=== PATIENT | male | born 1980 | race Caucasian/White ===

== ENCOUNTER 2024-12-27 16:33 | Emergency (ER) | payer BC, OTHER ==
[2024-12-27] MEDS ORDERED: Dexamethasone 4 MG/ML SDV IVPUSH ONE (16:45)
[2024-12-27 16:50] LABS: BASOPHILS ABSOLUTE AUTO 0.02 K/uL (0.00-0.20); BASOPHILS PERCENT AUTO 0.3 % (0.0-1.0); EOSINOPHILS ABSOLUTE AUTO 0.04 K/uL (0.00-0.45); EOSINOPHILS PERCENT AUTO 0.7 % (0.0-6.0); HEMATOCRIT 37.9 % (42.0-52.0); HEMOGLOBIN 13.4 g/dL (14.0-18.0); IMMATURE GRAN ABSOLUTE AUTO 0.01 K/uL (0.00-0.05); IMMATURE GRAN PERCENT AUTO 0.2 % (0.0-0.4); LYMPHOCYTES ABSOLUTE AUTO 0.49 K/uL (1.00-4.80); LYMPHOCYTES PERCENT AUTO 8.2 % (24.0-44.0); MEAN CORPUSCULAR HEMOGLOBIN 25.8 pg (28.0-32.0); MEAN CORPUSCULAR HGB CONC 35.4 g/dL (32.0-36.0); MEAN CORPUSCULAR VOLUME 72.9 fL (83.0-99.0); MONOCYTES PERCENT AUTO 15.1 % (0.0-8.0); NEUTROPHILS ABSOLUTE AUTO 4.51 K/uL (1.80-7.70); NEUTROPHILS PERCENT AUTO 75.5 % (41.0-71.0); PLATELET COUNT,PLT 126 K/uL (150-400); WHITE BLOOD CELL COUNT,WBC 5.97 K/uL (3.9-11.3)
[2024-12-27] MEDS ORDERED: Sodium Chloride 0.9% 2,000 ML IV ONE (16:50)
[2024-12-27] MEDS: Sodium Chloride 0.9% 1,000 ML IV ONE ×2 (16:57→16:58)
[2024-12-27] MEDS: Ondansetron 4 MG/2 ML SDV IVPUSH ONE (16:58)
[2024-12-27] MEDS: Ketorolac 30 MG/ML SDV IVPUSH ONE (16:58)
[2024-12-27] MEDS: Acetaminophen 500 MG Tab PO ONE (16:58)
[2024-12-27] MEDS: Sodium Chloride 0.9% 10 ML Syringe FLUSH PRN (16:59)
[2024-12-27 17:07] LABS: HEMOGLOBIN A1C 11.5 %
[2024-12-27 17:30] LABS: A/G RATIO 0.9 (0.9-1.6); BILIRUBIN TOTAL 0.5 mg/dL (0.2-1.0); CALCIUM 8.4 mg/dL (8.5-10.1); CARBON DIOXIDE,CO2 18.4 mmol/L (21.0-32.0); CREATININE 0.7 mg/dL (0.8-1.3); EST CRCL DRUG DOSING (CG) 131.49 mL/min; MAGNESIUM 1.6 mg/dL (1.8-2.4); POTASSIUM,K 3.9 mmol/L (3.5-5.1); PROTEIN TOTAL,TP 6.5 g/dL (6.4-8.2)
[2024-12-27] MEDS: Iopamidol 755 MG/ML 500 ML Multipack Bottle IVPUSH STA (17:49)
[2024-12-27] MEDS: Magnesium Oxide 400 MG Tab PO ONE (19:08)
[2024-12-27 19:22] VITALS: BP 112/54; PULSE 89
== END 2024-12-27 19:15 | disposition home or self-care (01) ==
LOC: MW.ED 16:33
DX: J10.1 Influenza due to other identified influenza virus with other respiratory manifestations (principal); E11.65 Type 2 diabetes mellitus with hyperglycemia; F17.200 Nicotine dependence, unspecified, uncomplicated; S09.90XA Unspecified injury of head, initial encounter; R29.6 Repeated falls; R00.0 Tachycardia, unspecified; Z79.899 Other long term (current) drug therapy; X58.XXXA Exposure to other specified factors, initial encounter
CPT/HCPCS: 36415; 70450; 71045; 71275; 80053; 83036; 83690; 83735; 83880; 84484; 85025; 85379; 87040; 87428; 93005; 96361; 96374; 96375; 99285; A9270; J1885; J2405; J7030; Q9967